=== PATIENT | male | born 1955 | race Caucasian/White ===

== ENCOUNTER → 2016-07-21 | Outpatient (CLI) | payer OTHER ==
[~2016-07-21] MED LIST: ASPIRIN325 M1 PO; B-121000 MCG PO; FISH OIL1000 MG PO; FOLIC ACID1 MG PO; GLYCOLAX17 GM/DOSE PO; METHOTREXATE 22.5 MG PO; MULTIVITAMIN1 TA1 PO; NAPROXEN SODIU220 MG PO; NORCO 325 MG-51 TAB PO; PLAQUENIL200 MG PO; PREDNISONE 5MG.5 MG PO
[2016-07-21 18:08] LABS: HEMOGLOBIN 15.1 g/dL (14.1-18.0); LYMPH % 31.8 % (10-50)
[2016-07-21 19:02] LABS: BILIRUBIN, INDIRECT 0.31 mg/dL (0-0.9)
[2016-07-21 19:20] LABS: GFR (ESTIMATED) 86 ML/MIN (>60)
== END ==
LOC: LAB 16:58
PROVIDERS: Internal Medicine
DX: M05.79 Rheumatoid arthritis with rheumatoid factor of multiple sites without organ or systems involvement (principal); M17.0 Bilateral primary osteoarthritis of knee; Z72.0 Tobacco use; Z79.899 Other long term (current) drug therapy

== ENCOUNTER → 2016-11-11 | Outpatient (CLI) | payer OTHER ==
[2016-11-11 15:46] LABS: LYMPH # 2.2 K/mm3 (0.7-4.5)
[2016-11-11 16:09] LABS: BUN 24 mg/dL (7-18)
[2016-11-11 16:14] LABS: GFR (ESTIMATED) 86 ML/MIN (>60)
== END ==
LOC: LAB 14:35
PROVIDERS: Internal Medicine
DX: M05.79 Rheumatoid arthritis with rheumatoid factor of multiple sites without organ or systems involvement (principal); Z79.899 Other long term (current) drug therapy

== ENCOUNTER → 2017-01-17 | Outpatient (CLI) | payer OTHER ==
[2017-01-17 15:58] LABS: LYMPH # 2.3 K/mm3 (0.7-4.5); LYMPH % 31.9 % (10-50)
[2017-01-17 16:07] LABS: HEMOGLOBIN 14.4 g/dL (14.1-18.0)
[2017-01-17 17:30] LABS: BUN 22 mg/dL (7-18)
[2017-01-17 18:14] LABS: GFR (ESTIMATED) 86 ML/MIN (>60)
== END ==
LOC: LAB 15:39
PROVIDERS: Internal Medicine
DX: M05.79 Rheumatoid arthritis with rheumatoid factor of multiple sites without organ or systems involvement (principal); Z79.899 Other long term (current) drug therapy